=== PATIENT | female | born 1960 | race Caucasian/White ===

== ENCOUNTER 2021-03-13 09:35 | Emergency (ER) | payer BC ==
--- NOTE | 2021-03-13 10:49 | ED Physician Documentation ---
History of Present Illness - Stated complaint Stated Complaint: PAIN IN RLE - Chief complaint Chief Complaint: Ext Problem - History of Present Illness Pain level max: 6 Pain level now: 4 - Additonal information Additional information: 60-year-old female with right lower extremity pain and swelling for the past several weeks, increasing today. Concerned about potential DVT. Does have a calcaneal spur on the right heel. She is being followed by a counter maker for this. Review of Systems Ten Systems: 10 systems reviewed and negative Constitutional: denies: Fever, Chills Cardiac: denies: Chest pain / pressure, Palpitations Respiratory: denies: Dyspnea, Cough GI: denies: Vomiting, Diarrhea, Hematemesis, Bloody / black stool Musculoskeletal: denies: Neck pain, Back pain PD PAST MEDICAL HISTORY - Past Medical History Past Medical History: Yes Respiratory: COPD - Present Medications Home Medications: Ambulatory Orders Medication Instructions Recorded Confirmed Albuterol Sulf [Ventolin Hfa 1 puffs INH DAILY PRN 03/13/21 03/13/21 Inhaler] Atorvastatin [Lipitor] 10 mg PO DAILY 03/13/21 03/13/21 Fluticasone 44 Mcg [Flovent] 1 puffs INH DAILY 03/13/21 03/13/21 Loratadine [Claritin] 10 mg PO DAILY 03/13/21 03/13/21 Rivaroxaban [Xarelto] 15 mg PO BID #42 tablet 03/13/21 allopurinoL [Allopurinol] 300 mg PO DAILY 03/13/21 03/13/21 - Allergies Allergies/Adverse Reactions: Allergies Allergy/AdvReac Type Severity Reaction Status Date / Time morphine Allergy Nausea Verified 03/13/21 09:44 - Living Situation Living Situation: reports: With family Living Arrangement: reports: At home - Social History Does the pt smoke?: No PD ED PE NORMAL - Vitals Vital signs reviewed: Yes - General General: Alert and oriented X 3, Well developed/nourished - HEENT HEENT: Moist mucous membranes - Neck Neck: Supple, no meningeal sign - Cardiac Cardiac: RRR - Respiratory Respiratory: No respiratory distress, Clear bilaterally - Derm Derm: Warm and dry - Extremities Extremities: Other (Tenderness to the right posterior calf. Visible swelling of the right lower leg greater than left lower leg. Neurovascularly intact) - Neuro Neuro: Alert and oriented X 3 - Psych Psych: Normal mood, Normal affect Results - Vitals Vitals: Vital Signs - 24 hr 03/13/21 03/13/21 09:40 11:20 Temperature 36.9 C Heart Rate 98 88 Respiratory 20 20 Rate Blood Pressure 175/95 H 143/86 H O2 Saturation 98 96 Oxygen O2 Source Room air - Rads (name of study) Duplex ultrasound right lower extremity Radiology: Final report received, EMP read contemporaneously, See rad report PD MEDICAL DECISION MAKING - ED course Complexity details: reviewed results, re-evaluated patient, considered differential, d/w patient ED course: 60-year-old female with a DVT from the femoral vein to the posterior tibial veins. Discussed various anticoagulant strategies including warfarin and Lovenox. Patient elects to go with Xarelto. We will place her on this for home. We will have her follow-up with her doctor for repeat imaging in 4 to 6 weeks. Patient counseled regarding the risks of the direct oral anticoagulants including bleeding and lack of reversibility. Patient counseled regarding signs and symptoms for which I believe and urgent re-evaluation would be necessary. Patient with good understanding of and agreement to plan and is comfortable going home at this time This document was made in part using voice recognition software. While efforts are made to proofread this document, sound alike and grammatical errors may occur. FINDINGS: Partial compressibility of the common femoral/greater saphenous vein junction. Noncompressible femoral vein. Noncompressible popliteal vein. Noncompressible gastrocnemius vein. Noncompressible posterior tibial/peroneal veins. IMPRESSION: Right lower extremity DVT as detailed above. Departure - Departure Disposition: 01 Home, Self Care Clinical Impression: Deep vein thrombosis Qualifiers: DVT location: lower extremity Affected thrombotic vein of extremity: unspecified vein of extremity Chronicity: acute Laterality: right Qualified Code(s): I82.401 - Acute embolism and thrombosis of unspecified deep veins of right lower extremity Condition: Good Instructions: ED DVT Follow-Up: Provider,Other [Primary Care Provider] - Within 1 week Prescriptions: Rivaroxaban [Xarelto] 15 mg PO BID #42 tablet Comments: Ultrasound today is positive for DVT. The ultrasound report as below. Your prescriptions were sent to [facility] in [place]. Please follow-up with your doctor in 1 week for recheck. They will likely want to repeat a ultrasound in 4 to 6 weeks. Return for chest pain, shortness of breath, or other new or worrisome symptoms. Also monitor yourself for any bleeding such as rectal bleeding, dark or tarry stools. Avoid ladders and trauma. If you fall and hit your head you must be evaluated in the emergency department. Your Xarelto dosage will change to 20 mg by mouth daily after 3 weeks. FINDINGS: Partial compressibility of the common femoral/greater saphenous vein junction. Noncompressible femoral vein. Noncompressible popliteal vein. Noncompressible gastrocnemius vein. Noncompressible posterior tibial/peroneal veins. IMPRESSION: Right lower extremity DVT as detailed above. Discharge Date/Time: 03/13/21 11:42
[2021-03-13 11:21] VITALS: BP 143/86
--- NOTE | 2021-03-13 11:22 | Ultrasound Report ---
PROCEDURE: Duplex Ext Veins Right INDICATIONS: RLE pain/swelling TECHNIQUE: Real-time imaging, as well as color and pulse Doppler interrogation, were performed of the lower extr emity deep veins from the inguinal ligament to the popliteal fossa. COMPARISON: None. FINDINGS: Partial compressibility of the common femoral/greater saphenous vein junction. Noncompressible femoral vein. Noncompressible popliteal vein. Noncompressible gastrocnemius vein. Noncompressible posterior tibial/peroneal veins. IMPRESSION: Right lower extremity DVT as detailed above. The ordering physician was notified by the automotive quality manager. Reviewed by: Forrest Miller MD on 03/13/2021 11:21 AM PST Approved by: Forrest Miller MD on 03/13/2021 11:21 AM PST Station ID: [id number]
== END 2021-03-13 11:42 | disposition home or self-care (01) ==
LOC: ED 09:35
DX: I82.411 Acute embolism and thrombosis of right femoral vein (principal); I82.431 Acute embolism and thrombosis of right popliteal vein; I82.461 Acute embolism and thrombosis of right calf muscular vein; I82.451 Acute embolism and thrombosis of right peroneal vein; I82.441 Acute embolism and thrombosis of right tibial vein
CPT/HCPCS: 99284

== ENCOUNTER 2022-02-27 05:29 | Emergency (ER) | payer BC, OTHER ==
[2022-02-27 05:43] VITALS: BP 160/86
--- NOTE | 2022-02-27 06:05 | ED Physician Documentation ---
History of Present Illness - Stated complaint Stated Complaint: LT LEG PX - Chief complaint Chief Complaint: Ext Problem - History obtained from History obtained from: Patient - Additonal information Additional information: 61yF with hx factor 5 leiden, DVT of RLE, p/w LLE pain after recent travel last week. denies cough, soa, hemoptysis, leg swelling in LLE>RLE. Review of Systems Constitutional: denies: Fever Musculoskeletal: reports: Extremity pain. 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 - Present Medications Home Medications: Ambulatory Orders Medication Instructions Recorded Confirmed Atorvastatin [Lipitor] 10 mg PO DAILY 03/13/21 02/27/22 Rivaroxaban [Xarelto] 15 mg PO BID #42 tablet 03/13/21 02/27/22 allopurinoL [Allopurinol] 300 mg PO DAILY 03/13/21 02/27/22 - Allergies Allergies/Adverse Reactions: Allergies Allergy/AdvReac Type Severity Reaction Status Date / Time morphine Allergy Nausea Verified 02/27/22 05:43 - Social History Does the pt smoke?: No Smoking Status: Never smoker PD ED PE NORMAL - Vitals Vital signs reviewed: Yes - General General: Alert and oriented X 3, No acute distress, Well developed/nourished - HEENT HEENT: Atraumatic, PERRL, EOMI - Neck Neck: Supple, no meningeal sign - Extremities Extremities: No deformity, No calf tenderness / cord Results - Vitals Vitals: Vital Signs - 24 hr 02/27/22 05:40 Temperature 36.2 C L Heart Rate 88 Respiratory 18 Rate Blood Pressure 160/86 H O2 Saturation 95 Oxygen O2 Source Room air PD MEDICAL DECISION MAKING - ED course ED course: 61yF p/w LLE pain without objective findings on exam. she is concerned for dvt despite being on xarelto already for dvt of other leg. advised her that we will have ultrasound at 9am and she requested to go home and follow up outpatient. return precautions given. plan to continue home xarelto. Departure - Departure Disposition: 01 Home, Self Care Clinical Impression: Left leg pain Condition: Stable Comments: You were seen in the ED for left leg pain and concern for DVT. Please follow up with your doctor regarding your symptoms and they may consider ordering an ultrasound to evaluate for DVT. Return to the ED for any new or worsening symptoms or other concerns. Continue taking your xarelto daily.
== END 2022-02-27 06:13 | disposition home or self-care (01) ==
LOC: ED 05:29
DX: M79.605 Pain in left leg (principal)
CPT/HCPCS: 99281; 99283

== ENCOUNTER 2022-04-24 08:00 | Outpatient (CLI) | payer OTHER | END 2022-04-24 23:59 | disposition home or self-care (01) | LOC: LAB 08:00 | PROVIDERS: ATTEND Physician Assistant Medical | DX: R31.9 Hematuria, unspecified (principal); R30.0 Dysuria | CPT/HCPCS: 87086 ==

== ENCOUNTER 2022-09-08 14:52 | Emergency (ER) | payer OTHER ==
[2022-09-08] MEDS ORDERED: diltiaZEM INJ 5 MG/ML VIAL IVP STA (15:15)
[2022-09-08] MEDS ORDERED: PROCAINAMIDE 1,000 MG in SODIUM CHLORIDE 0.9% 240 ML IV STA (15:15)
--- NOTE | 2022-09-08 15:21 | ED Physician Documentation ---
PD HPI DYSPNEA - Stated complaint Stated Complaint: SOA,HIGH HEART RATE - Chief complaint Chief Complaint: Cardiac - History obtained from History obtained from: Patient - Additional information Additional information: 62-year-old woman with history of DVT on Xarelto. About 10 years ago she had some sort of arrhythmia which aborted on the way to the hospital so there was no formal diagnosis. She is felt palpitations for the last 48 hours or so. Initially intermittent but lasting all day today. Is associated with shortness of breath but no chest pain. 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 - Present Medications Home Medications: Ambulatory Orders Medication Instructions Recorded Confirmed Atorvastatin [Lipitor] 10 mg PO DAILY 03/13/21 02/27/22 Rivaroxaban [Xarelto] 15 mg PO BID #42 tablet 03/13/21 02/27/22 allopurinoL [Allopurinol] 300 mg PO DAILY 03/13/21 02/27/22 - Allergies Allergies/Adverse Reactions: Allergies Allergy/AdvReac Type Severity Reaction Status Date / Time morphine Allergy Nausea Verified 02/27/22 05:43 - Social History Does the pt smoke?: No Smoking Status: Never smoker PD ED PE NORMAL - Vitals Vital signs reviewed: Yes - General General: Alert and oriented X 3, No acute distress - Cardiac Cardiac: Other (Rapid and irregular without murmur) - Respiratory Respiratory: No respiratory distress, Clear bilaterally - Abdomen Abdomen: Non tender - Extremities Extremities: No edema, No calf tenderness / cord - Neuro Neuro: Alert and oriented X 3, Normal speech Results - Vitals Vitals: Vital Signs - 24 hr 09/08/22 09/08/22 09/08/22 14:53 15:12 16:22 Temperature 36.1 C L Heart Rate 74 149 H 106 H Respiratory 18 16 15 Rate Blood Pressure 148/110 H 146/107 H 97/81 H O2 Saturation 98 99 98 09/08/22 16:39 Temperature Heart Rate 108 H Respiratory 22 Rate Blood Pressure 107/85 H O2 Saturation 97 Oxygen O2 Source Room air - EKG (time done) 1501 EKG releavant findings:: EKG personally interpreted by author of this note. Relevant findings are: Rate: Rate (enter#) (158) Rhythm: Atrial fibrillation Pinnacle: Normal Ischemia: Non specific changes. No: ST elevation c/w ischemia 624 EKG releavant findings:: EKG personally interpreted by author of this note. Relevant findings are: Rate: Rate (enter#) (103) Rhythm: Sinus tachycardia Pinnacle: Normal Intervals: Normal IA QRS: Normal, Low voltage Ischemia: Normal ST segments - Labs Labs: Laboratory Tests 09/08/22 09/08/22 09/08/22 15:18 15:18 15:18 WBC 7.6 RBC 5.73 H Hgb 15.3 Hct 47.6 H MCV 83.1 MCH 26.7 L MCHC 32.1 RDW 14.5 Plt Count 220 MPV 10.8 Neut # (Auto) 4.4 Lymph # (Auto) 2.3 Arthur # (Auto) 0.6 Eos # (Auto) 0.1 Baso # (Auto) 0.1 Absolute Nucleated RBC 0.00 Nucleated RBC % 0.0 PT 12.0 INR 1.1 Sodium 143 Potassium 4.2 Chloride 107 Carbon Dioxide 24 Anion Gap 12.0 BUN 15 Creatinine 0.7 Estimated GFR (MDRD) 85 L Glucose 164 H Calcium 9.4 Magnesium 2.0 Total Bilirubin 0.7 AST 27 ALT 22 Alkaline Phosphatase 77 Total Protein 7.7 Albumin 3.9 Globulin 3.8 Albumin/Globulin Ratio 1.0 TSH 09/08/22 15:18 WBC RBC Hgb Hct MCV MCH MCHC RDW Plt Count MPV Neut # (Auto) Lymph # (Auto) Arthur # (Auto) Eos # (Auto) Baso # (Auto) Absolute Nucleated RBC Nucleated RBC % PT INR Sodium Potassium Chloride Carbon Dioxide Anion Gap BUN Creatinine Estimated GFR (MDRD) Glucose Calcium Magnesium Total Bilirubin AST ALT Alkaline Phosphatase Total Protein Albumin Globulin Albumin/Globulin Ratio TSH 1.11 - Rads (name of study) Single view chest x-ray shows mild edema Relevant Findings:: Final report received, EMP independent interpretation of test PD Medical Decision Making - ED course ED course: 62-year-old woman with rapid A-fib. She has had symptoms for about 48 hours. We talked about options. I do feel it was probably safe to cardiovert her as she is chronically on Xarelto. She was administered 10 mg of diltiazem which brought her rate down into the 130s and then started on procainamide drip, about half an hour into the procainamide drip she cardioverted to sinus rhythm with resolution of her symptoms. She does have mild edema on her chest x-ray. I think now that she is converted she will probably self diuresis so this probably does not need to be specifically treated. Departure - Departure Disposition: 01 Home, Self Care Clinical Impression: Rapid atrial fibrillation, Adequate anticoagulation on anticoagulant therapy Condition: Good Record reviewed to determine appropriate education?: Yes Instructions: Atrial Fibrillation Dc Comments: You were seen today for new onset rapid atrial fibrillation. You were cardioverted with procainamide drip. Continue your Xarelto. You should follow- up with a realtime reporter, for example call the [place] [facility] to see if they can have one of the physicians that does clinic here see you in [place]. Return for recurrent symptoms.
[2022-09-08 15:24] LABS: BASOPHILS # (AUTO) 0.1 10^3/uL (0.0-0.1); BASOPHILS % (AUTO) 0.9 %; EOSINOPHILS # (AUTO) 0.1 10^3/uL (0.0-0.7); EOSINOPHILS % (AUTO) 1.7 %; HCT - HEMATOCRIT 47.6 % (37.0-47.0); HGB - HEMOGLOBIN 15.3 g/dL (12.0-16.0); LYMPHOCYTES # (AUTO) 2.3 10^3/uL (1.5-3.5); LYMPHOCYTES % (AUTO) 30.8 %; MEAN CORPUSCULAR HEMOGLOBIN 26.7 pg (27.0-31.0); MEAN CORPUSCULAR HGB CONC 32.1 g/dL (32.0-36.0); MEAN CORPUSCULAR VOLUME 83.1 fL (81.0-99.0); MEAN PLATELET VOLUME 10.8 fL (7.9-10.8); MONOCYTES # (AUTO) 0.6 10^3/uL (0.0-1.0); MONOCYTES % (AUTO) 8.3 %; NEUTROPHILS # (AUTO) 4.4 10^3/uL (1.5-6.6); PLT - PLATELET COUNT 220 10^3/uL (130-450); RED BLOOD COUNT 5.73 10^6/uL (4.20-5.40); RED CELL DISTRIBUTION WIDTH 14.5 % (12.0-15.0); WHITE BLOOD COUNT 7.6 x10^3/uL (4.8-10.8)
[2022-09-08 15:32] LABS: INR 1.1 (0.8-1.2)
[2022-09-08 15:36] LABS: ALBUMIN 3.9 g/dL (3.2-5.5); BILIRUBIN,TOTAL 0.7 mg/dL (0.2-1.0); CALCIUM 9.4 mg/dL (8.5-10.3); CREATININE 0.7 mg/dL (0.4-1.0); POTASSIUM 4.2 mmol/L (3.5-5.0); TOTAL PROTEIN 7.7 g/dL (6.7-8.2)
--- NOTE | 2022-09-08 15:51 | XRAY Report ---
PROCEDURE: Chest 1 View X-Ray INDICATIONS: dyspnea TECHNIQUE: One view of the chest was acquired. COMPARISON: None. FINDINGS: Surgical changes and devices: None. Lungs and pleura: Increased pulmonary markings and peribronchial cuffing. Mediastinum: Mediastinal contours appear normal. Heart size is normal. Bones and chest wall: No suspicious bony lesions. Overlying soft tissues appear unremarkable. IMPRESSION: Mild interstitial edema. Reviewed by: Bird Short on 09/08/2022 2:50 PM AKDT Approved by: Bird Short on 09/08/2022 2:50 PM AKDT Station ID: [id number]
[2022-09-08 16:42] VITALS: BP 107/85
== END 2022-09-08 17:01 | disposition home or self-care (01) ==
LOC: ED 14:52
DX: I48.91 Unspecified atrial fibrillation (principal); J44.9 Chronic obstructive pulmonary disease, unspecified; Z79.01 Long term (current) use of anticoagulants; Z79.899 Other long term (current) drug therapy
CPT/HCPCS: 36415; 71045; 80053; 83735; 84443; 85025; 85610; 93005; 96365; 96375; 99284; 99285; J2690

== ENCOUNTER 2023-12-16 11:25 | Outpatient (CLI) | payer OTHER | END 2023-12-16 11:26 | disposition home or self-care (01) | LOC: LAB.S 11:25 | PROVIDERS: ATTEND Physician Assistant Medical | DX: U07.1 COVID-19 (principal) ==